=== PATIENT | male | born 1985 | race Caucasian/White ===

== ENCOUNTER 2017-05-18 21:02 | Emergency (ER) | payer BC, OTHER ==
[~2017-05-18] VITALS: Ht 182.9 cm; Wt 103.0 kg
[2017-05-18 21:04] VITALS: BP 158/95
[2017-05-18] MEDS ORDERED: KETOROLAC 30 MG/1 ML IM ONE (23:30)
[2017-05-18] MEDS ORDERED: DIAZEPAM 5 MG TABLET PO ONE (23:30)
[2017-05-18] MEDS ORDERED: KETOROLAC 30 MG/1 ML ONE (23:54)
[2017-05-18] MEDS ORDERED: DIAZEPAM 5 MG TABLET ONE (23:54)
== END 2017-05-19 00:53 | disposition home or self-care (01) ==
LOC: ED 23:59
DX: M54.42 Lumbago with sciatica, left side (principal)
CPT/HCPCS: 96372; 99283; J1885

== ENCOUNTER → 2020-02-29 | Outpatient (CLI) | payer OTHER | END | disposition home or self-care (01) | LOC: RAD 08:48 | PROVIDERS: ATTEND Internal Medicine | DX: S43.422S Sprain of left rotator cuff capsule, sequela (principal); X58.XXXS Exposure to other specified factors, sequela ==

== ENCOUNTER 2020-09-20 19:25 | Emergency (ER) | payer OTHER ==
[~2020-09-20] VITALS: Ht 182.9 cm; Wt 86.2 kg
[2020-09-20 19:29] VITALS: BP 167/99
--- NOTE | 2020-09-20 20:50 | NUR ---
Dc home with instruct, rx, signed opiate form. Pt verbalizes understanding of instruct and f/u to return to ER if worse or concerns.
== END 2020-09-20 20:51 | disposition home or self-care (01) ==
LOC: ED 20:42
DX: S03.2XXA Dislocation of tooth, initial encounter (principal); K02.9 Dental caries, unspecified; K08.89 Other specified disorders of teeth and supporting structures; X58.XXXA Exposure to other specified factors, initial encounter; Y93.89 Activity, other specified; Y92.89 Other specified places as the place of occurrence of the external cause; Y99.8 Other external cause status
CPT/HCPCS: 99283